=== PATIENT | female | born 1955 | race Caucasian/White ===

== ENCOUNTER → 2016-12-20 | Outpatient (CLI) | payer OTHER | LOC: WI 14:14 | PROVIDERS: ATTEND Specialist | DX: Z12.31 Encounter for screening mammogram for malignant neoplasm of breast (principal) | CPT/HCPCS: 77067; G0202 ==

== ENCOUNTER → 2017-06-05 | Outpatient (CLI) | payer OTHER ==
[2017-06-05 12:16] LABS: APPEARANCE,URINE CLEAR; BILIRUBIN,URINE NEGATIVE (NEGATIVE); GLUCOSE, URINE NEGATIVE (NEGATIVE); KETONES,URINE NEGATIVE (NEGATIVE); LEUKOCYTE ESTERASE,URINE NEGATIVE (NEGATIVE); NITRITE,URINE NEGATIVE (NEGATIVE); PROTEIN,URINE NEGATIVE (NEGATIVE); URINE SPECIFIC GRAVITY 1.004; UROBILINOGEN,URINE NEGATIVE mg/dL (<2.0)
[2017-06-05 12:18] LABS: ABSOLUTE EOSINOPHILS # (AUTO) 0.1 10^3/uL (0.0-0.6); ABSOLUTE LYMPHOCYTES (AUTO) 2.2 10^3/uL (0.5-4.7)
[2017-06-05 12:27] LABS: ABSOLUTE MONOCYTES (AUTO) 1.3 10^3/uL (0.1-1.4); ABSOLUTE NEUT (AUTO) 8.9 10^3/uL (1.7-8.2); BASOPHILS % (AUTO) 0.4 % (0-2); EOSINOPHILS % (AUTO) 0.7 % (0-6); HEMATOCRIT 39.4 % (36.0-47.0); HEMOGLOBIN 13.3 g/dL (12.0-15.5); HGB HCT DIFFERENCE 0.5; LYMPHOCYTES % (AUTO) 17.9 % (13-45); MEAN CORPUSCULAR HEMOGLOBIN 29.8 pg (27.0-33.4); MEAN CORPUSCULAR HGB CONC 33.7 g/dL (32.0-36.0); MEAN CORPUSCULAR VOLUME 88 fl (80-97); MONOCYTES % (AUTO) 10.3 % (3-13); RED BLOOD COUNT 4.46 10^6/uL (3.72-5.28); RED CELL DISTRIBUTION WIDTH 15.8 % (11.5-14.0); SEGMENTED NEUTROPHILS % (AUTO) 70.7 % (42-78); WHITE BLOOD COUNT 12.5 10^3/uL (4.0-10.5)
[2017-06-05 12:37] LABS: ALBUMIN 4.1 g/dL (3.5-5.0); ANION GAP 13 (5-19); BLOOD UREA NITROGEN 32 mg/dL (7-20); CALCIUM 9.7 mg/dL (8.4-10.2); CARBON DIOXIDE 32 mmol/L (22-30); CHLORIDE 97 mmol/L (98-107); CREATININE RESULT 0.98 mg/dL (0.52-1.25); GLUCOSE 106 mg/dL (75-110); PHOSPHORUS 3.1 mg/dL (2.5-4.5); POTASSIUM 3.5 mmol/L (3.6-5.0); SODIUM 142.1 mmol/L (137-145)
[2017-06-05 12:46] LABS: URINE CREATININE 16.9 mg/dL (15-278); URINE PROTEIN 10.7 mg/dL (<12)
[2017-06-06 15:39] LABS: M-SPIKE % UR Not Observed % (Not Observed)
[2017-06-06 16:12] LABS: PTH INTACT 42 pg/mL (15-65); VITAMIN D 25-HYDROXY 52.1 ng/mL (30.0-100.0)
[2017-06-06 16:40] LABS: A/G RATIO 1.3 (0.7-1.7); ALBUMIN 2 3.7 g/dL (2.9-4.4); ALPHA-1-GLOBULIN 2 0.2 g/dL (0.0-0.4); GAMMA GLOBULIN 0.6 g/dL (0.4-1.8); PROTEIN TOTAL SERUM 6.5 g/dL (6.0-8.5)
== END ==
LOC: OD 10:45
PROVIDERS: ATTEND Internal Medicine Nephrology
DX: I12.9 Hypertensive chronic kidney disease with stage 1 through stage 4 chronic kidney disease, or unspecified chronic kidney disease (principal); N18.3 Chronic kidney disease, stage 3 (moderate); R60.1 Generalized edema; E11.9 Type 2 diabetes mellitus without complications
CPT/HCPCS: 36415; 80048; 81001; 82040; 82306; 82570; 83970; 84100; 84156; 84165; 84166; 85025

== ENCOUNTER → 2017-06-25 | Outpatient (CLI) | payer OTHER ==
[2017-06-25 09:23] LABS: ANION GAP 8 (5-19); BLOOD UREA NITROGEN 43 mg/dL (7-20); CALCIUM 9.5 mg/dL (8.4-10.2); CARBON DIOXIDE 32 mmol/L (22-30); CHLORIDE 103 mmol/L (98-107); CREATININE RESULT 1.27 mg/dL (0.52-1.25); GLUCOSE 121 mg/dL (75-110); MAGNESIUM 1.9 mg/dL (1.6-2.3); POTASSIUM 3.8 mmol/L (3.6-5.0); SODIUM 143.4 mmol/L (137-145)
== END ==
LOC: OD 08:14
PROVIDERS: ATTEND Internal Medicine Nephrology
DX: N18.3 Chronic kidney disease, stage 3 (moderate) (principal); E87.6 Hypokalemia
CPT/HCPCS: 36415; 80048; 83735

== ENCOUNTER → 2017-08-01 | Outpatient (CLI) | payer OTHER ==
[2017-08-01 09:18] LABS: ANION GAP 12 (5-19); BLOOD UREA NITROGEN 58 mg/dL (7-20); CALCIUM 9.2 mg/dL (8.4-10.2); CARBON DIOXIDE 32 mmol/L (22-30); CHLORIDE 97 mmol/L (98-107); CREATININE RESULT 1.31 mg/dL (0.52-1.25); GLUCOSE 114 mg/dL (75-110); MAGNESIUM 2.2 mg/dL (1.6-2.3); POTASSIUM 3.4 mmol/L (3.6-5.0)
== END ==
LOC: OD 08:04
PROVIDERS: ATTEND Internal Medicine Nephrology
DX: N18.3 Chronic kidney disease, stage 3 (moderate) (principal); E11.9 Type 2 diabetes mellitus without complications
CPT/HCPCS: 36415; 80048; 83735

== ENCOUNTER → 2017-09-04 | Outpatient (CLI) | payer OTHER ==
[2017-09-04 16:21] LABS: ANION GAP 9 (5-19); BLOOD UREA NITROGEN 25 mg/dL (7-20); CALCIUM 10.2 mg/dL (8.4-10.2); CARBON DIOXIDE 35 mmol/L (22-30); CHLORIDE 90 mmol/L (98-107); GLUCOSE 211 mg/dL (75-110); SODIUM 133.7 mmol/L (137-145)
[2017-09-04 16:28] LABS: POTASSIUM 3.2 mmol/L (3.6-5.0)
== END ==
LOC: OD 15:25
PROVIDERS: ATTEND Internal Medicine Nephrology
DX: N18.3 Chronic kidney disease, stage 3 (moderate) (principal); E87.6 Hypokalemia
CPT/HCPCS: 36415; 80048

== ENCOUNTER 2017-09-09 17:25 | Emergency (ER) | payer OTHER ==
[~2017-09-09 17:25] MED LIST: EPINEPHRINE INJ 1 MG/10 ML DISP.SYRIN ONE; SODIUM BICARBONATE 8.4% INJ 50 MEQ/50 ML DISP.SYRIN ONE
[2017-09-09] MEDS ORDERED: SODIUM BICARBONATE 8.4% INJ 50 MEQ/50 ML DISP.SYRIN ONE ×2 (17:49→20:07)
[2017-09-09] MEDS ORDERED: EPINEPHRINE INJ 30 MG/30 ML VIAL ONE (17:56)
--- NOTE | 2017-09-09 17:57 | ER Document Report ---
ED Resuscitation - General Mode of Arrival: Medic Information source: Emergency Med Personnel TRAVEL OUTSIDE OF THE [place] IN LAST 30 DAYS: No - HPI Witnessed arrest: Yes Bystander CPR?: Yes Onset: Just prior to arrival Severity: Severe Symptoms prior to event: Unknown Activity prior to event: Other - See above Associated Symptoms: Other - See above - Paramedics initial findings Unresponsive: Completely Respirations: Agonal Rhythm: PEA - Pre-hospital treatment Treatment: CPR/thumper, Intubated <MARCELLO DORADO - Last Filed: 09/09/17 19:21> <MICHELLE THURSTON E - Last Filed: 09/09/17 21:40> - General Stated Complaint: UNRESPONSIVE Time Seen by Provider: 09/09/17 17:51 Notes: a 62-year-old female that supposedly fell to the ground witnessed by her . Supposedly the patient may have tripped. EMS was called and states that the patient was having some shortness of breath. It was unknown whether it was related to the fall. Patient supposedly went into cardiac arrest subsequently one half hour after the fall. According to the in the room the patient has a history of diabetes, asthma, and high blood pressure. Supposedly no history of heart attacks or strokes. (MARCELLO DORADO) - Related Data Allergies/Adverse Reactions: levofloxacin [From Levaquin] Allergy (Verified 06/19/16 12:47) Past Medical History - Social History Smoking Status: Unknown if Ever Smoked Cigarette use (# per day): No Chew tobacco use (# tins/day): No Smoking Education Provided: No Frequency of alcohol use: None Family History: Reviewed & Not Pertinent. denies: CVA - Past Medical History Cardiac Medical History: Reports: Hx Hypertension Denies: Hx Heart Attack, Hx Hypercholesterolemia Neurological Medical History: Denies: Hx Cerebrovascular Accident Endocrine Medical History: Reports: Hx Diabetes Mellitus Type 2 <MARCELLO DORADO - Last Filed: 09/09/17 19:21> Review of Systems - Review of Systems -: Yes ROS unobtainable due to patient's medical condition Neurological/Psychological: Other - no slurred speech -: Yes All other systems reviewed and negative <MARCELLO DORADO - Last Filed: 09/09/17 19:21> Physical Exam <MARCELLO DORADO - Last Filed: 09/09/17 19:21> <JULIO CESAR THURSTONE E - Last Filed: 09/09/17 21:40> - Vital signs Vitals: Pulse Ox 98 09/09/17 18:36 Notes: Reviewed vital signs and nursing note as charted by RN. CONSTITUTIONAL: Unresponsive and intubated HEAD: Normocephalic EYES: Unresponsive 3 mm bilaterally ENT: Tube in place NECK: Supple without meningismus; trachea midline CARD: Regular rate and rhythm; no murmurs, no clicks, no rubs, no gallops; symmetric distal pulses RESP: Being bagged. Slightly decreased breath sounds to the left lung ABD/GI: Normal bowel sounds; with a BMI BACK: The back appears normal with no crepitus to palpation of the back EXT: Abrasion to the left arm SKIN: Abrasion to the left arm NEURO: No spontaneous movement (MARCELLO DORADO) Course - Laboratory Result Diagrams: 09/09/17 17:43 09/09/17 17:43 <MARCELLO DORADO - Last Filed: 09/09/17 19:21> - Laboratory Result Diagrams: 09/09/17 17:43 09/09/17 17:43 <MICHELLE THURSTON E - Last Filed: 09/09/17 21:40> - Re-evaluation Re-evalutation: Patient brought in actively coding. Epinephrine and bicarb were given. No return of spontaneous circulation. Patient had good condensation of the tube. Patient did fall on the left side by EMS with subsequent cardiac arrest around 15 minutes following the fall. They state that she fell onto her left side. states that she did not hit her head. Concern about possible tension pneumothorax given the PEA status post fall. I needle decompressed the left chest in the appropriate location with a 14-gauge long catheter. Patient did have some air release. This was followed by subsequent left-sided 22 Frisian chest tube. Patient did have return of spontaneous circulation. She was subsequently placed on an epinephrine drip. She then subsequently lost her pulses after a quick EKG was performed. Initial EKG after spontaneous return showed a heart of 73, what appear to be in AV block with possible ST elevations in leads III, and AVR with some depression in leads I and aVL. Patient subsequently lost pulses about 2 minutes following this. X-ray of the chest that show possible right mainstem. We pulled back the tube and repeated the x-ray showing it to be in a proper location. Chest compressions were again resumed and the patient was placed on an epinephrine of breath. Return of spontaneous circulation was again achieved. Repeat EKG at this time shows a heart of 123, sinus tachycardia, no obvious ST elevation except possibly minimally in lead III. Right bundle branch block present. 09/09/17 18:35 Given that the patient did have a fall prior to the incident with no left-sided chest tube with return of spontaneous circulation, I did call the trauma center at [facility] and spoke to Dr. Bernal. I explained the full history and physical and he does not believe that this necessarily needs trauma criteria. He is asked to possibly perform CT scans with the patient and wait for the laboratory work. 09/09/17 18:51 Glucose as recorded. Labs otherwise as recorded. Liter fluid infusing. 09/09/17 18:55 On x-ray the chest tube appears to be in the proper location the left chest wall cavity. Lactic acid and ABG is pending. I have called [facility] MICU for transfer. 09/09/17 19:21 Repeat EKG shows a heart of 106, sinus tachycardia, normal axis, no obvious ST elevation or depression. We have placed ice packs to the axilla and the groin. Awaiting MICU call back. (MARCELLO DORADO) - Vital Signs Vital signs: Temp Pulse Resp BP Pulse Ox 96.6 F L 16 73/46 L 79 L 09/09/17 21:04 09/09/17 21:04 09/09/17 21:04 09/09/17 21:04 - Laboratory Laboratory results interpreted by me: 09/09/17 09/09/17 09/09/17 17:43 17:43 17:43 WBC 17.0 H Hgb 11.7 L MCHC 31.3 L RDW 17.5 H Band Neutrophils % 9 H Monocytes % (Manual) 2 L Metamyelocytes % 2 H Abs Neuts (Manual) 13.1 H PT 16.9 H Sodium 128.2 L Chloride 89 L Carbon Dioxide 15 L Anion Gap 24 H BUN 47 H Creatinine 1.55 H Est GFR ( Amer) 41 L Est GFR (Non-Af Amer) 34 L Glucose 651 H* Lactic Acid AST 214 H ALT 229 H Total Protein 5.7 L 09/09/17 19:45 WBC Hgb MCHC RDW Band Neutrophils % Monocytes % (Manual) Metamyelocytes % Abs Neuts (Manual) PT Sodium Chloride Carbon Dioxide Anion Gap BUN Creatinine Est GFR ( Amer) Est GFR (Non-Af Amer) Glucose Lactic Acid 12.8 H AST ALT Total Protein Procedures - Chest Tube Left Consent obtained: No Chest tube pre-insertion: Chloraprep applied Chest tube post-insertion: Air mcelroy heard, Sutured, Position confirmed w/ CXR, Water seal, Low intermittent suction Number of attempts: 1 Complications: No <MARCELLO DORADO - Last Filed: 09/09/17 19:21> Critical Care Note - Critical Care Note Total time excluding time spent on procedures (mins): 105 <MARCELLO DORADO - Last Filed: 09/09/17 19:21> Discharge <MARCELLO DORADO - Last Filed: 09/09/17 19:21> <MICHELLE THURSTON - Last Filed: 09/09/17 21:40> - Discharge Clinical Impression: Cardiac arrest Condition: Critical Disposition:
--- NOTE | 2017-09-09 18:03 | RADIOLOGY REPORT (SQ) ---
EXAM DESCRIPTION: CHEST SINGLE VIEW COMPLETED DATE/TIME: 09/09/2017 5:49 pm REASON FOR STUDY: t1 cardiac arresdt COMPARISON: 06/19/2016 EXAM PARAMETERS: NUMBER OF VIEWS: One view TECHNIQUE: Single frontal radiograph of the chest. RADIATION DOSE: N/A LIMITATIONS: None. FINDINGS: TEMPORARY SUPPORT DEVICES:ETT is in the right mainstem bronchus. Should be pulled back 5 cm. LUNGS AND PLEURA: No opacities. No masses. No effusions. No pneumothorax. MEDIASTINUM AND HILAR STRUCTURES: No masses. Contour normal. HEART AND VASCULAR STRUCTURES: Heart size normal. Normal vascularity. Aorta normal for age BONES: No acute findings. OTHER: No other significant finding. IMPRESSION: NO ACUTE RADIOGRAPHIC FINDING IN THE CHEST. ETT in the right mainstem bronchus. TECHNICAL DOCUMENTATION: JOB ID: [id number]- All Rights Reserved
[2017-09-09 18:18] LABS: HEMATOCRIT 37.4 % (36.0-47.0); HEMOGLOBIN 11.7 g/dL (12.0-15.5); MEAN CORPUSCULAR HEMOGLOBIN 30.4 pg (27.0-33.4); MEAN CORPUSCULAR HGB CONC 31.3 g/dL (32.0-36.0); MEAN CORPUSCULAR VOLUME 97 fl (80-97); PLATELET COUNT 170 10^3/uL (150-450); RED BLOOD COUNT 3.86 10^6/uL (3.72-5.28); RED CELL DISTRIBUTION WIDTH 17.5 % (11.5-14.0)
[2017-09-09 18:20] LABS: INTERNATIONAL RATION (INR) 1.28; PROTHROMBIN TIME 16.9 SEC (11.4-15.4)
[2017-09-09 18:30] LABS: ALANINE AMINOTRANSFERASE 229 U/L (9-52); ALBUMIN 3.6 g/dL (3.5-5.0); ALKALINE PHOSPHATASE 116 U/L (38-126); ASPARTATE AMINO TRANSFERASE 214 U/L (14-36); BILIRUBIN,DIRECT 0.3 mg/dL (0.0-0.4); BILIRUBIN,TOTAL 0.4 mg/dL (0.2-1.3); BLOOD UREA NITROGEN 47 mg/dL (7-20); CALCIUM 9.4 mg/dL (8.4-10.2); CREATINE KINASE 130 U/L (30-135); POTASSIUM 4.2 mmol/L (3.6-5.0); TOTAL PROTEIN 5.7 g/dL (6.3-8.2)
[2017-09-09 18:37] LABS: ABSOLUTE LYMPHOCYTES# (MANUAL) 3.6 10^3/uL (0.5-4.7); ABSOLUTE MONOCYTES # (MANUAL) 0.3 10^3/uL (0.1-1.4); ABSOLUTE NEUTROPHILS# (MANUAL) 13.1 10^3/uL (1.7-8.2); BAND NEUTROPHILS % (MANUAL) 9 % (3-5); BASOPHILS % (MANUAL) 0 % (0-2); EOSINOPHILS % (MANUAL) 0 % (0-6); LYMPHOCYTES % (MANUAL) 21 % (13-45); METAMYELOCYTES % (MANUAL) 2 % (0); MONOCYTES % (MANUAL) 2 % (3-13); NUCLEATED RED BLOOD CELLS 2 /100 WBC (0); SEGMENTED NEUTROPHILS % (MAN) 66 % (42-78); TOTAL CELLS COUNTED 100
[2017-09-09 18:38] LABS: ANISOCYTOSIS SLIGHT; CARBON DIOXIDE 15 mmol/L (22-30); CHLORIDE 89 mmol/L (98-107); PLATELET COMMENT ADEQUATE; SODIUM 128.2 mmol/L (137-145)
[2017-09-09 18:43] LABS: CREATINE KINASE MB 3.94 ng/mL (<4.55)
[2017-09-09 18:44] LABS: TROPONIN I 0.082 ng/mL
[2017-09-09 18:47] LABS: ANION GAP 24 (5-19); GLUCOSE 651 mg/dL (75-110)
[2017-09-09] MEDS ORDERED: CEFTRIAXONE 1 GM/D5W RTU 1 GM/50 ML RTUPB IV ONE (18:53)
--- NOTE | 2017-09-09 19:10 | RADIOLOGY REPORT (SQ) ---
EXAM DESCRIPTION: CHEST SINGLE VIEW COMPLETED DATE/TIME: 09/09/2017 7:00 pm REASON FOR STUDY: ETT READJUSTMENT COMPARISON: 09/09/2017 and 06/19/2016. EXAM PARAMETERS: NUMBER OF VIEWS: One view. TECHNIQUE: Single frontal radiographic view of the chest acquired. RADIATION DOSE: NA LIMITATIONS: None. FINDINGS: LUNGS AND PLEURA: Streaky density in the left lung base. No pleural effusion. No pneumot horax. MEDIASTINUM AND HILAR STRUCTURES: No masses. Contour normal. HEART AND VASCULAR STRUCTURES: Cardiomegaly. Ectatic aorta. BONES: No acute findings. HARDWARE: Endotracheal tube now with the tip located 4 cm proximal to the ethel. Nasogastric tube w ith the tip in the stomach and the side hole at the level of the distal esophagus. OTHER: No other significant finding. IMPRESSION: 1. ENDOTRACHEAL TUBE IN SATISFACTORY POSITION. NASOGASTRIC TUBE WITH THE SIDE HOLE IN THE DISTAL ESO PHAGUS, ADVANCEMENT BY 4- 5 CM WOULD IMPROVE POSITION. 2. STREAKY DENSITY IN THE LEFT LUNG BASE. THIS COULD BE ARTIFACT DUE TO OVERLYING STRUCTURES OR COUL D BE DUE TO ATELECTASIS OR EARLY INFILTRATE. TECHNICAL DOCUMENTATION: JOB ID: [id number] [employer]- All Rights Reserved
[2017-09-09] MEDS ORDERED: EPINEPHRINE INJ/PF 1 MG/1 ML AMPULE ONE ×3 (19:14→20:39)
[2017-09-09] MEDS ORDERED: CEFTRIAXONE INJ 1000 MG VIAL ONE (20:01)
--- NOTE | 2017-09-09 20:04 | RADIOLOGY REPORT (SQ) ---
EXAM DESCRIPTION: CHEST SINGLE VIEW COMPLETED DATE/TIME: 09/09/2017 7:11 pm REASON FOR STUDY: T1, CHEST TUBE COMPARISON: 09/09/2017. EXAM PARAMETERS: NUMBER OF VIEWS: One view. TECHNIQUE: Single frontal radiographic view of the chest acquired. RADIATION DOSE: NA LIMITATIONS: None. FINDINGS: LUNGS AND PLEURA: Left-sided chest tube. Minimal basilar pneumothorax. Right lung clear. MEDIASTINUM AND HILAR STRUCTURES: No masses. Contour normal. HEART AND VASCULAR STRUCTURES: Heart normal in size. Normal vasculature. BONES: No acute findings. HARDWARE: Endotracheal tube and nasogastric tube unchanged. Interval placement left-sided chest tube . OTHER: Small amount of subcutaneous emphysema adjacent to the chest tube. IMPRESSION: PLACEMENT OF LEFT-SIDED CHEST TUBE WITH MINIMAL BASILAR PNEUMOTHORAX. OTHERWISE NO BORJA Myze. TECHNICAL DOCUMENTATION: JOB ID: [id number] [employer]- All Rights Reserved
[2017-09-09] MEDS ORDERED: EPINEPHRINE INJ 1 MG/10 ML DISP.SYRIN ONE (20:14)
[2017-09-09] MEDS ORDERED: NORMAL SALINE 1000 ML 2,000 ML IV ONE (20:24)
--- NOTE | 2017-09-09 20:39 | ER Document Report ---
Doctor's Note Notes: 09/09/17 Patient was signed out to me by Dr. Barry. 82-year-old obese female who according to her who I talked to, tripped in the warner and landed on her left side She was unable to get up. At that point #1 was called and when the medics arrived, he became unresponsive. Dr. Palencia performed ACLS. Patient was found to be in PEA. She did regain ROS see in the emergency department but has lost numerous times since then.. Patient is maxed on her epi drip at 20. She also has a left chest tube that was placed by Dr. Barry. Chest x-ray showed good placement of ET tube as well as chest tube. Patient went into PEA and I was called into the room. ACLS protocol was followed. Patient was given epinephrine, calcium gluconate, sodium bicarb. Patient's son and have been in and out of the room and I have been telling them exactly was going on. Ultrasound has shown cardiac activity although it is diminished. There is no effusion present. There is a pink frothy sputum in the ET tube. Respiratory has had a suction the patient multiple times. There is minimal bright red blood coming from the chest tube at this time. 09/09/17 21:40 Patient continued to regain intermittent spontaneous pulse with boluses of IV epinephrine. However she never sustained her pulse for longer than a few minutes. I did talk to the patient's again. I let him know what is going on throughout the coding process. I did ask him again if he visually saw her fall. He states that he did see her trip she fell onto the ground. He states that she was awake after she fell and she did not hit her head. He states that she was complaining of shortness of breath. He states that when she was in the ambulance she was going "in and out of it". He states she was short of breath in the ambulance as well. I did discuss TPA in the was agreeable to giving the medication as a last resort. PA was given 50 mg however it did not improve the patient's outcome. Despite aggressive resuscitative efforts the patient . Time of 2104 on September 09 2017 09/09/17 22:[address]Troy Michael the patient's primary medical doctor. On-call doctor is notified of patient's . certificate filled out by me. Critical care time of 30 minutes for reassessment of the patient, CPR, discussion with the patient's family members, also patient's primary medical doctor, paperwork.
[2017-09-09] MEDS ORDERED: ALTEPLASE INJ 100 MG VIAL IV ONE (20:47)
--- NOTE | 2017-09-09 22:03 | EKG REPORT ---
SEVERITY:- ABNORMAL ECG - JUNCTIONAL RHYTHM RBBB ACUTE INFERIOR VT SUSPECTED. : Confirmed by: Dejon Ojeda MD 09-Sep-2017 22:03:21
--- NOTE | 2017-09-09 22:05 | EKG REPORT ---
SEVERITY:- ABNORMAL ECG - SINUS TACHYCARDIA WITH PACS [phone] RIGHT BUNDLE BRANCH BLOCK STILL SUSPICIOUS OF ACUTE INFERIOR PA. : Confirmed by: Dejon Ojeda MD 09-Sep-2017 22:04:48
--- NOTE | 2017-09-09 22:06 | EKG REPORT ---
SEVERITY:- ABNORMAL ECG - SINUS TACHYCARDIA PROBABLE LEFT ATRIAL ABNORMALITY RIGHT BUNDLE BRANCH BLOCK ST ELEVATIONS HAVE IMPROVED INFERIOR LEADS, CLINICAL CORRELATION NEEDED.. : Confirmed by: Dejon Ojeda MD 09-Sep-2017 22:05:54
[2017-09-09 22:15] VITALS: BP 62/10
== END 2017-09-10 01:33 | disposition expired ==
LOC: ER 17:25
PROC: 0W9B30Z Drainage of Left Pleural Cavity with Drainage Device, Percutaneous Approach (ICD-10-PCS; principal; 2017-09-09)
DX: I46.9 Cardiac arrest, cause unspecified (principal); R06.02 Shortness of breath; E11.9 Type 2 diabetes mellitus without complications; I10 Essential (primary) hypertension; R41.82 Altered mental status, unspecified; W01.0XXA Fall on same level from slipping, tripping and stumbling without subsequent striking against object, initial encounter
CPT/HCPCS: 93005; 99291; 99292; 92950; 51702; 36415; 82553; 82962; 82550; 83605; 85025; 85610; 80053; 84484; 71045; 93010; 32551; J0171; J3490; J7030